=== PATIENT | female | born 1965 | race Caucasian/White ===

== ENCOUNTER 2016-03-12 14:22 | Emergency (ER) | payer OTHER ==
[~2016-03-12] VITALS: Ht 160 cm; Wt 70.0 kg
--- NOTE | 2016-03-12 14:25 | ED.REPORT ---
HPI-General Illness Date of Service Mar 12, 2016 ED Provider: Rico Alexander MD Pt is a 50 year old female with a hx of DM II, CHF and HTN presenting to the ED complaining of a near syncopal episode. Associated symptoms include diaphoresis , lightheadedness, cough, runny nose and thirstiness. Denies LOC, hitting her head, fever, SOB, chest pain, palpitations, jaw pain, numbness. She states [place] and began to feel lightheaded and had diaphoresis. When she stood up, she had a near syncopal episode but was caught by her . Pt reports drinking 1/2 of 1 beer and eating a banana and grapes today. She states that she sometimes has flutters but she did not report any today. She does not take insulin for her DM and her blood sugar was 93. BP on arrival was 68/40. Nursing Notes Stated Complaint: NEAR SYNCOPE Chief Complaint: General Complaint Nursing Notes Reviewed: Yes Allergies: Coded Allergies: No Known Allergies (Unverified , 03/12/16) Scheduled Aspirin (Aspirin) 81 Mg Tablet 81 MG PO DAILY Carvedilol (Carvedilol) 25 Mg Tablet 50 MG PO BID Duloxetine (Cymbalta) 20 Mg Capsule 80 MG PO DAILY Gabapentin (Gabapentin) 300 Mg Capsule 300 MG PO BID Losartan Potassium (Losartan Potassium) 50 Mg Tablet 50 MG PO DAILY Metformin (Metformin) 500 Mg Tablet 500 MG PO BID Ranitidine (Ranitidine) 150 Mg Capsule 150 MG PO BID Solifenacin Succinate (Vesicare) 5 Mg Tablet 5 MG PO HS Spironolactone (Spironolactone) 25 Mg Tablet 25 MG PO DAILY Miscellaneous Medications Mecobalamin (B-12) 5,000 Mcg Tab.rapdis 5,000 MCG PO General Time Seen by MD: 14:23 Chief Complaint Other (Near syncope) Hx Obtained From: Patient, Spouse Arrived By: Walk-in Sudden in Onset?: Yes Onset Occurred: Just prior to arrival Symptom Duration: Since onset Severity: Current: No pain currently Severity: Maximum: No pain Recent Healthcare: No recent doctor visit, No recent hospitalization Similar Sx Previous: No Past Medical History Past Medical History CHF 2009, DM II, HTN Past Surgical History denies Smoking History Unknown if Ever Smoker Ambulatory Status Independent Review of Systems Full Review of Systems Constitutional: Denies: Fever Ears / Nose / Throat: Reports: Nasal congestion Respiratory: Reports: Non-productive cough, Denies: Shortness of breath Cardiovascular: Denies: Chest pain, Palpitations Skin: Reports Diaphoresis Neurologic: Reports: Lightheaded, Syncope (Near), Denies: Change LOC, Numbness Complete sys rev & neg: except as marked. Physical Exam Vital Signs Vital Signs Date Time Temp Pulse Resp B/P Pulse Ox O2 Delivery O2 Flow Rate FiO2 03/12/16 16:36 82 19 97/54 99 Room Air 03/12/16 15:43 80 108/56 100 03/12/16 15:43 81 101/56 99 03/12/16 15:43 89 103/58 97 03/12/16 15:14 82 18 96/59 96 Room Air 03/12/16 14:31 36.8 80 92/56 92 Room Air Initial VS: Reviewed General/Constitutional: Well-developed, Well-nourished Head / Eyes: Atraumatic, Normocephalic, PERRL ENT: Mucous membranes moist, Conjunctiva normal, No scleral icterus Respiratory: Breath sounds normal, Clear to auscultation, No respiratory distress Cardiovascular: Regular rate & rhythm, Heart sounds normal, Intact distal pulses Abdomen / GI: Soft, Non-tender, No guarding, No rebound, No distention Extremities: Vascular intact, Neuro intact, No swelling, No tenderness Skin: Warm, Dry, No cyanosis Neurologic: Alert, Oriented, Nonfocal Psychiatric: Mood/affect normal, Behavior normal, Normal thought content Neck: No JVD Lower Extremity / Pelvis / MS: No edema Interpretation & Diagnostics Lab Results Interpretation Result Diagram: 03/12/16 1420 03/12/16 1420 Test 03/12/16 14:20 White Blood Count 9.1th/mm3 (3.8-10.1) Red Blood Count 4.79mil/mm3 (3.90-5.20) Hemoglobin 14.2g/dL (12.0-15.6) Hematocrit 41.8% (35.0-46.0) Mean Corpuscular Volume 87.3fL (81-100) Mean Corpuscular Hemoglobin 29.6pg (27.0-35.0) Mean Corpuscular Hemoglobin Concent 34.0% (32.0-37.0) Red Cell Distribution Width 12.3% (12.3-15.4) Platelet Count 293bil/L (150-400) Neutrophils (%) (Auto) 63.2% (40-74) Lymphocytes (%) (Auto) 23.4% (14-46) Monocytes (%) (Auto) 10.2% (4-12) Eosinophils (%) (Auto) 2.8% (0-5) Basophils (%) (Auto) 0.2% (0-3) Sodium Level 138mEq/L (134-144) Potassium Level 4.6mEq/L (3.5-5.2) Chloride Level 99mEq/L (97-108) Carbon Dioxide Level 24mmol/L (18-29) Blood Urea Nitrogen 19mg/dL (6-24) Creatinine 0.47mg/dL (0.57-1.00) Estimat Glomerular Filtration Rate 199mL/min (>59) Glucose Level 94mg/dL (60-99) Calcium Level 9.2mg/dL (8.5-10.1) Magnesium Level 2.0mg/dL (1.6-2.6) Total Bilirubin 0.2mg/dL (0.0-1.2) Aspartate Amino Transf (AST/SGOT) 22U/L (0-50) Alanine Aminotransferase (ALT/SGPT) 16U/L (0-32) Alkaline Phosphatase 55U/L (25-150) Troponin T < 0.010ug/L (0.0-0.011) Total Protein 7.3g/dL (6.4-8.4) Albumin 4.1g/dL (3.4-5.0) ECG Interpretation ECG Interpretation: LBBB. Time: 14:37 Interpreted by: ED physician Normal ECG Interpretation: Normal rate (77), Normal sinus rhythm X-Ray Chest Interpretation Chest Xray Interpretation: IMPRESSION: No acute cardiopulmonary disease. Heart appears slightly globular. If they cardiac cause for syncope is suspected, echocardiogram suggested for further evaluation. Dictated by: Joleen Ramon M.D. on 03/12/2016 at 15:09 View: Portable, 1 view Re-Eval/Medical Decision Med Decision/Clinical Course 50-year-old female presenting with episode of near syncope while at a scene at today. She did have 1 alcoholic beverage. She denies any neuro cardiogenic prodrome. She was found to be hypotensive on arrival. She is on high doses of carvedilol in addition to losartan and spironolactone. She also reports decreased oral intake the last couple days due to upper respiratory symptoms. She was given IV fluids and her repeat blood pressures were normal with normal orthostatics. Her labs were unremarkable. Patient felt much better. Her EKG showed a left bundle branch block and she is unsure if this is old. Discussed with patient and she requests to go home. Advised her to hold off on her blood pressure medications tonight in in the morning and that she should go to urgent care tomorrow to have her blood pressure rechecked in follow-up the primary doctor on Monday. She is advised to return immediately should she develop any syncope, chest pain, palpitations, any other new or worsening symptoms. She agrees. Time of Eval: 16:17 Patient Status: Condition improved Re-Evaluation/Progress Note: Discussed plan for discharge. Pt understands and agrees with plan. All pt questions addressed. Advised pt to lower dosages of blood pressure medications. Counseled Regarding: Diagnosis, Lab results, Need for follow-up, When/why to return to ED Discharge & Departure Primary Impression: Orthostatic hypotension Additional Impression: Near syncope Disposition: Home Discharge Condition All VS Reviewed: Yes Condition: Improved Additional Instructions: Your symptoms were likely due to your low blood pressure. This could be from dehydration or taking too many blood pressure medications. Your EKG had a left bundle branch block, your vital signs are normal now, and your symptoms have resolved. I recommend not taking any blood pressure medications tomorrow. Go to a pharmacy or urgent care tomorrow and check your blood pressure. Follow up with your primary care physician to see about adjusting your medications and blood pressure check monday. Return to the ER with any new or worsening symptoms. Do not drink any alcohol this weekend until you get your blood pressure medications figured out. Scribe Attestation Portions of this note were transcribed by Ria. I, Dr. Alexander personally performed the history, physical exam and medical decision-making; I reviewed and confirmed the accuracy of the information in the transcribed note. Signed by: Lisa Cortez, 03/12/2016 and 1623. Rico Alexander MD Mar 12, 2016 14:24 RIA DOWNS Mar 12, 2016 14:59
[2016-03-12 14:31] VITALS: BP 92/56; PULSE 80; O2SAT 92
[2016-03-12 14:58] LABS: BASOPHILS % (AUTO) 0.2 % (0-3); EOSINOPHILS % (AUTO) 2.8 % (0-5); MONOCYTES % (AUTO) 10.2 % (4-12); Mean Corpuscular Hemoglobin 29.6 pg (27.0-35.0); Mean Corpuscular Volume 87.3 fL (81-100); NEUTROPHILS % (AUTO) 63.2 % (40-74); Platelet Count 293 bil/L (150-400)
--- NOTE | 2016-03-12 15:10 | DRSVH ---
PROCEDURE: X-RAY CHEST ONE VIEW, PORTABLE ([id number]) INDICATIONS: NEAR SYNCOPAL TECHNIQUE: One view of the chest was acquired. COMPARISON: None. FINDINGS: Surgical changes and devices: None. Lungs and pleura: No pleural effusions or pneumothorax. Lungs are clear. Mediastinum: Mediastinal contours appear normal. Heart size is normal. Heart appears slightly globu lar. Bones and chest wall: No suspicious bony lesions. Overlying soft tissues appear unremarkable. IMPRESSION: No acute cardiopulmonary disease. Heart appears slightly globular. If they cardiac cause for syncope is suspected, echocardiogram suggested for further evaluation. Dictated by: Joleen Ramon M.D. on 03/12/2016 at 15:09 Approved by: Joleen Ramon M.D. on 03/12/2016 at 15:10
[2016-03-12 15:14] VITALS: BP 96/59; PULSE 82; RESP 18; O2SAT 96
[2016-03-12] MEDS ORDERED: CARV25TA2 PO (15:18)
[2016-03-12] MEDS ORDERED: LOSA50TA37 PO (15:18)
[2016-03-12] MEDS ORDERED: METF500T4 PO (15:20)
[2016-03-12] MEDS ORDERED: GABA-502 PO (15:20)
[2016-03-12] MEDS ORDERED: SPIR25TA3 PO (15:20)
[2016-03-12] MEDS ORDERED: SOLI5TAB2 PO (15:20)
[2016-03-12] MEDS ORDERED: ASPI-973 PO (15:23)
[2016-03-12] MEDS ORDERED: MECO5000 PO (15:23)
[2016-03-12] MEDS ORDERED: DULO20CA PO (15:23)
[2016-03-12] MEDS ORDERED: RANI150C4 PO (15:23)
[2016-03-12 15:26] LABS: TROPONIN T < 0.010 ug/L (0.0-0.011)
[2016-03-12 15:43] VITALS: BP_SYST 101; BP_SYST 103; BP_SYST 108; BP_DIAS 56; BP_DIAS 58; PULSE 80; PULSE 81; PULSE 89; O2SAT 100; O2SAT 97; O2SAT 99
[2016-03-12 16:36] VITALS: BP 97/54; PULSE 82; RESP 19; O2SAT 99
== END 2016-03-12 16:30 | disposition home or self-care (01) ==
LOC: EDBD 14:22 → SED 14:22
DX: I95.1 Orthostatic hypotension (principal); R55 Syncope and collapse; I11.0 Hypertensive heart disease with heart failure; I50.9 Heart failure, unspecified; E11.9 Type 2 diabetes mellitus without complications; Z79.82 Long term (current) use of aspirin; Z79.84 Long term (current) use of oral hypoglycemic drugs